=== PATIENT | male | born 1960 | race Caucasian/White ===

== ENCOUNTER 2023-09-13 17:04 | Emergency (ER) | payer OTHER ==
[2023-09-13] MEDS ORDERED: Lidocaine 1% 5 ML VIAL INJECT ONE (17:33)
[2023-09-13] MEDS: Diphtheria,Pertussis(Acell),Tetanus Vaccine 0.5 ML Syringe IM ONE (18:36)
[2023-09-13] MEDS: Bacitracin Oint 1 GM U/D Packet TOP ONE (18:45)
[2023-09-13] MEDS: Amoxicillin/Clavulanate K 875-125 MG Tab PO ONE (18:58)
== END 2023-09-13 19:07 | disposition home or self-care (01) ==
LOC: LL.ED 17:04
DX: S61.237A Puncture wound without foreign body of left little finger without damage to nail, initial encounter (principal); Z23 Encounter for immunization; Z88.8 Allergy status to other drugs, medicaments and biological substances; Z91.018 Allergy to other foods; Z79.899 Other long term (current) drug therapy; W45.8XXA Other foreign body or object entering through skin, initial encounter
CPT/HCPCS: 73140; 90471; 90715; 99283; A9270